=== PATIENT | male | born 1990 | race American Indian/Alaskan Native ===

== ENCOUNTER 2017-01-14 07:18 | Emergency (ER) | payer SELFPAY ==
[2017-01-14 07:18] VITALS: BMI 27.5
[2017-01-14 07:33] VITALS: BP 130/74; PULSE 84; RESP 18; TEMP 97.7; O2SAT 99
[2017-01-14] MEDS ORDERED: Lidocaine 2% w Epi 1:100,000 Inj IJ ONE (07:40)
--- NOTE | 2017-01-14 07:52 | C.PDOC ---
History Of Present Illness 26 yo male, presents abcess to left mandible x 2 days. had this previous a few year ago. abscess x 1 week, small amount of drainage. no fevers or other complaints Time Seen by Provider: 01/14/17 07:28 Chief Complaint (Nursing): Abnormal Skin Integrity Past Medical History Reviewed: Historical Data, Nursing Documentation, Vital Signs Vital Signs: Last Vital Signs Temp 97.7 F 01/14/17 07:30 Pulse 84 01/14/17 07:30 Resp 18 01/14/17 07:30 BP 130/74 01/14/17 07:30 Pulse Ox 99 01/14/17 07:30 - [facility] Procedures OTHER SKIN & SUBQ I D (04/17/14) Family History: States: Unknown Family Hx - Social History Hx Tobacco Use: Yes Hx Alcohol Use: No Hx Substance Use: No - Immunization History Hx Tetanus Toxoid Vaccination: No Hx Influenza Vaccination: No Hx Pneumococcal Vaccination: No Review Of Systems Skin: Positive for: Other (abscess) Physical Exam - Physical Exam Appears: Well, No Acute Distress Skin: Normal Color, Warm, Dry, Other (1cm area of flucutance, no surrounding erythema, small amount of drainage) Eye(s): bilateral: Normal Inspection, PERRL, EOMI Nose: Normal Throat: Normal Neck: Normal Cardiovascular: Rhythm Regular Respiratory: Normal Breath Sounds Gastrointestinal/Abdominal: Normal Exam Back: Normal Inspection Extremity: Normal ROM ED Course And Treatment O2 Sat by Pulse Oximetry: 99 - Incision & Drainage Of Abscess Anesthesia: Lidocaine 2%, With Epi Prep Used: Sterile Water Procedure: Incised W/Scalpel Blade#: (11), Drained Pus, Irrigated Cavity W/ Saline, Probed To Break Up Loculations, Packed W/Gauze Medical Decision Making Medical Decision Making: abscess. bedside us shows small collection. i and d performed. packed. 2 day return for wound check, packing removal. Disposition - Disposition Disposition: HOME/ ROUTINE Disposition Time: 07:53 Condition: STABLE Additional Instructions: return to er or see your doctor in 2 days for wound check. return immediately with any concern. Instructions: Abscess Incision and Drainage (ED), Abscess (ED) - Clinical Impression Clinical Impression: Abscess
== END 2017-01-14 08:01 | disposition home or self-care (01) ==
LOC: C.ER 07:18
DX: M27.2 Inflammatory conditions of jaws (principal); Z87.891 Personal history of nicotine dependence